=== PATIENT | female | born 1975 | race Caucasian/White ===

== ENCOUNTER 2016-10-08 20:25 | Emergency (ER) | payer BC ==
[2016-10-08 21:01] VITALS: BP 142/79; PULSE 88; TEMP 97.9
[2016-10-08 21:06] VITALS: BMI 30.9
[2016-10-08 21:44] LABS: AUTOMATED BASOPHIL 0.9 % (0-2); AUTOMATED EOSINOPHIL 1.3 % (0-5); AUTOMATED LYMPH 28.2 % (17-44); AUTOMATED MONOCYTE 5.4 % (3-10); AUTOMATED NEUTROPHIL 64.2 % (45-76)
[2016-10-08 21:51] LABS: AMORPHOUS OCC; LEUKOCYTES/URINE NEG (NEGATIVE); NITRITE/URINE NEG (NEGATIVE); URINE OCCULT BLOOD NEG (NEG/TRACE)
[2016-10-08 21:57] LABS: BLOOD UREA NITROGEN 10 MG/DL (7-17); CALCIUM 8.9 MG/DL (8.4-10.2); CALCULATED OSMOLALITY 277 MOs/Kg (270-290); CHLORIDE 105 mEq/L (98-107); GLUCOSE 89 MG/DL (70-99); SODIUM LEVEL 145 mEq/L (137-146); TOTAL PROTEIN 7.5 G/DL (6.3-8.2)
[2016-10-08] MEDS ORDERED: OXYCODONE HCL 5 MG TABLET PO ONE (22:06)
[2016-10-08] MEDS ORDERED: NS 1,000 ML IV ONE (22:06)
--- NOTE | 2016-10-08 22:26 | EDPRACDOC ---
- General Information Chief Complaint: Abdominal Pain Stated Complaint: ABDOMINAL PAIN Time Seen by Provider: 10/08/16 22:10 Information Source: Patient Mode Of Arrival: Car Home Medications: Home Medications Butalb/Acetaminophen/Caffeine [Fioricet 50-300-40 mg Capsule] 1 each PO TID PRN 02/27/14 Divalproex Sodium [Depakote] 500 mg PO BID 02/27/14 Omeprazole 40 mg PO DAILY 02/27/14 Sumatriptan Succinate [Imitrex] 100 mg PO DAILY PRN 02/27/14 Oxycodone Immediate Release [Oxycodone Immediate Release Tablet] 1 - 2 tabs PO Q6H PRN 03/02/14 Promethazine HCl [Phenergan] 1 tab PO Q4H PRN 03/02/14 Allergies/Adverse Reactions: Allergies Allergy/AdvReac Type Severity Reaction Status Date / Time No Known Allergies Allergy Verified 10/08/16 21:01 - History of Present Illness Onset: one months HPI: C/o constant RLQ ache with spikes of sharp pain that also radiate to right inner thigh and belly button and hip. Pain has been getting worse, and is worse with movement. Pt has not had menses for 2 months, hx of BTL, and inguinal hernia repair on right side 15yrs ago. Denies trauma, fever, vomiting, diarrhea , sob, cp, vaginal sx, changes in bladder or BM. Has tried ibuprofen without relief. Surgical hx = nash, BTL. Pain Location: Reports: RLQ Pain Context: Reports: Spontaneous Pain Severity: Moderate Pain Quality: Reports: Aching, Cramping, Sharp Pain Radiation: Reports: Periumbilical, Groin Last Menstrual Period: 2 months : No Control Method: Reports: BTL Adult Abdominal History: Reports: Abdominal Surgery (nash) Female Abdominal History: Reports: Abdominal Surgery (btl) Modifying Factors: improves with: Lying Still Female Associated Signs & Symptoms: Reports: Nausea Oral Intake: Normal Urinary Output: Normal ED Past Medical History - History Reviewed Yes Nurses notes reviewed and agree except as marked - Patient Medical History Neurological History: Reports: Migraine Respiratory History: Reports: Asthma GI/ History: Reports: Kidney Stones (PASSED) Psychological History: Reports: Bipolar Disorder Systemic History: Denies: Cancer Surgical History: Reports: Cholecystectomy, Hernia Surgery (RT GROIN) - Family Medical History Reports: Hypertension, Cancer (MOTHER, BREAST). Denies: Diabetes, Stroke, Cardiac Disorders - Social Medical History Smoking Status: Never smoker EDM Review of Systems - Review of Systems ROS Negative Except as Marked: Yes All systems reviewed and were negative except as marked Gastrointestinal: Nausea, Pain - Physical Exam Constitutional: No apparent distress, Alert Oriented to: Time, Person, Place Last recorded Vital Signs: Last Vital Signs Temp 97.9 F 10/08/16 21: Pulse 88 10/08/16 21: Resp 18 10/08/16 21:01 BP 142/79 10/08/16 21:01 Pulse Ox 96 10/08/16 21:01 Oxygen Pulse Oxygen Saturation 96 O2 Device Oxygen Flow Rate Fraction of Inspired Oxygen ( FIO2) - HEENT Head: Normal Eye Exam: negative: Conjunctival Injection, Scleral Icterus Oropharynx: negative: Drooling TMJ: Normal Nose: No Symptoms Reported Neck: Normal - Respiratory/Cardiovascular Respiratory: Normal - CTA Cardiovascular: Normal - GI Auscultation: Normal Palpation: Normal Tenderness: Moderate, RLQ, Rebound - Musculoskeletal Back: Normal Extremities: Normal - Integumentary Skin: Normal - Neurologic Mood Description: Normal Thought: Coherent - Results 10/08/16 21:30 10/08/16 21:30 WBC 13.3 xk/uL (3.8-10.8) H 10/08/16 21:30 RBC 4.59 xM/uL (4.20-5.40) 10/08/16 21:30 Hgb 13.6 g/dL (12.0-16.0) 10/08/16 21:30 Hct 39.4 % (36-47) 10/08/16 21:30 MCV 86 fL (81-99) 10/08/16 21:30 MCH 29.7 pg (27-32) 10/08/16 21:30 MCHC 34.5 g/dl (33-36) 10/08/16 21:30 RDW 13.4 % (11.5-14.5) 10/08/16 21:30 Plt Count 240 xk/uL (130-400) 10/08/16 21:30 MPV 8.0 fL (7.4-10.4) 10/08/16 21:30 Neut % (Auto) 64.2 % (45-76) 10/08/16 21:30 Lymph % (Auto) 28.2 % (17-44) 10/08/16 21:30 Glenn % (Auto) 5.4 % (3-10) 10/08/16 21:30 Eos % (Auto) 1.3 % (0-5) 10/08/16 21:30 Baso % (Auto) 0.9 % (0-2) 10/08/16 21:30 Absolute Neuts (auto) 8.51 xk/uL (1.7-8.2) H 10/08/16 21:30 Absolute Lymphs (auto) 3.72 xk/uL (0.65-4.75) 10/08/16 21:30 Sodium 145 mEq/L (137-146) 10/08/16 21:30 Potassium 3.3 mEq/L (3.5-5.1) L 10/08/16 21:30 Chloride 105 mEq/L (98-107) 10/08/16 21:30 Carbon Dioxide 29 mMOL/L (22-33) 10/08/16 21:30 Anion Gap 14 mEq/L (8-16) 10/08/16 21:30 BUN 10 MG/DL (7-17) 10/08/16 21:30 Creatinine 1.00 MG/DL (0.52-1.04) 10/08/16 21:30 Estimated GFR (MDRD) > 60 mL/min (>=60) 10/08/16 21:30 Glucose 89 MG/DL (70-99) 10/08/16 21:30 Calculated Osmolality 277 MOs/Kg (270-290) 10/08/16 21:30 Calcium 8.9 MG/DL (8.4-10.2) 10/08/16 21:30 Corrected Calcium 9.0 MG/DL (8.4-10.2) 10/08/16 21:30 Total Bilirubin 0.6 MG/DL (0.2-1.3) 10/08/16 21:30 AST 26 IU/L (14-36) 10/08/16 21:30 ALT 36 IU/L (9-52) 10/08/16 21:30 Alkaline Phosphatase 121 IU/L (38-126) 10/08/16 21:30 Total Protein 7.5 G/DL (6.3-8.2) 10/08/16 21:30 Albumin 3.9 G/DL (3.5-5.0) 10/08/16 21:30 Beta HCG, Quant < 2.4 mIU/mL (<5) 10/08/16 21:30 Urine Color Yellow 10/08/16 21:26 Urine Clarity Sl hzy 10/08/16 21:26 Urine pH 6.0 (5.0-8.0) 10/08/16 21:26 Ur Specific [place] 1.020 (1.003-1.035) 10/08/16 21:26 Urine Protein 1+ (NEG/TRACE) H 10/08/16 21:26 Urine Glucose (UA) Neg (NEGATIVE) 10/08/16 21:26 Urine Ketones Neg (NEGATIVE) 10/08/16 21:26 Urine Occult Blood Neg (NEG/TRACE) 10/08/16 21:26 Urine Nitrite Neg (NEGATIVE) 10/08/16 21:26 Urine Bilirubin Neg (NEGATIVE) 10/08/16 21:26 Urine Urobilinogen <2.0 MG/DL (0-1) 10/08/16 21:26 Ur Leukocyte Esterase Neg (NEGATIVE) 10/08/16 21:26 Ur Epithelial Cells 2+ 10/08/16 21:26 Amorphous Sediment Occ 10/08/16 21:26 Urine Mucus Mod (NEG/OCC) H 10/08/16 21:26 Urine Test Neg (NEGATIVE) 10/08/16 21:26 Lab Results 10/08/16 10/08/16 10/08/16 21:30 21:30 21:30 WBC 13.3 H RBC 4.59 Hgb 13.6 Hct 39.4 MCV 86 MCH 29.7 MCHC 34.5 RDW 13.4 Plt Count 240 MPV 8.0 Neut % (Auto) 64.2 Lymph % (Auto) 28.2 Glenn % (Auto) 5.4 Eos % (Auto) 1.3 Baso % (Auto) 0.9 Absolute Neuts (auto) 8.51 H Absolute Lymphs (auto) 3.72 Sodium 145 Potassium 3.3 L Chloride 105 Carbon Dioxide 29 Anion Gap 14 BUN 10 Creatinine 1.00 Estimated GFR (MDRD) > 60 Glucose 89 Calculated Osmolality 277 Calcium 8.9 Corrected Calcium 9.0 Total Bilirubin 0.6 AST 26 ALT 36 Alkaline Phosphatase 121 Total Protein 7.5 Albumin 3.9 Beta HCG, Quant < 2.4 Urine Color Urine Clarity Urine pH Ur Specific [place] Urine Protein Urine Glucose (UA) Urine Ketones Urine Occult Blood Urine Nitrite Urine Bilirubin Urine Urobilinogen Ur Leukocyte Esterase Ur Epithelial Cells Amorphous Sediment Urine Mucus Urine Test 10/08/16 10/08/16 21:26 21:26 WBC RBC Hgb Hct MCV MCH MCHC RDW Plt Count MPV Neut % (Auto) Lymph % (Auto) Glenn % (Auto) Eos % (Auto) Baso % (Auto) Absolute Neuts (auto) Absolute Lymphs (auto) Sodium Potassium Chloride Carbon Dioxide Anion Gap BUN Creatinine Estimated GFR (MDRD) Glucose Calculated Osmolality Calcium Corrected Calcium Total Bilirubin AST ALT Alkaline Phosphatase Total Protein Albumin Beta HCG, Quant Urine Color Yellow Urine Clarity Sl hzy Urine pH 6.0 Ur Specific [place] 1.020 Urine Protein 1+ H Urine Glucose (UA) Neg Urine Ketones Neg Urine Occult Blood Neg Urine Nitrite Neg Urine Bilirubin Neg Urine Urobilinogen <2.0 Ur Leukocyte Esterase Neg Ur Epithelial Cells 2+ Amorphous Sediment Occ Urine Mucus Mod H Urine Test Neg - Diagnostic Imaging Abdomen Image interpreted by: Radiologist 10/09/16 00:47 EXAM: CT ABDOMEN AND PELVIS WITH CONTRAST TECHNIQUE: Multidetector CT imaging of the abdomen and pelvis was performed using the standard protocol following bolus administration of intravenous contrast. CONTRAST: 100 cc Isovue 370 COMPARISON: 01/11/2013 FINDINGS: Lower chest: Linear subsegmental atelectasis in the right middle lobe and lingula. Hepatobiliary: Cholecystectomy. Pancreas: Unremarkable Spleen: Unremarkable Adrenals/Urinary Tract: Unremarkable Stomach/Bowel: Appendix not seen but no right lower quadrant inflammatory process is evident. The bowel appears unremarkable. Vascular/Lymphatic: Small retroperitoneal lymph nodes are present but are not pathologically enlarged Reproductive: Unremarkable Other: No supplemental non-categorized findings. Musculoskeletal: Mild levoconvex lumbar scoliosis. No overt impingement in the lumbar spine. Slight stranding along the right inguinal canal region, image 83 series 3. If the patient has had prior inguinal hernia repair then this would be a normal and expected finding. Otherwise a could represent a small focus of inflammation or a slightly indistinct lymph node. There is some low-level subcutaneous stranding overlying the right groin as well. No discrete hernia seen. IMPRESSION: 1. The appendix is not discretely seen but there is no inflammatory process in the right lower quadrant to favor acute appendicitis. 2. In the vicinity of the right inguinal ring there is a small focus of asymmetric density. If the patient has had prior inguinal hernia repair then this would be in normal and expected finding. If not, it could represent a small focus of inflammation or an adjacent external iliac lymph node. There is some subtle stranding in the overlying subcutaneous tissues of the right groin. No inguinal hernia is currently seen. 3. Mild levoconvex lumbar scoliosis. Electronically Signed By: Luis Chong M.D. On: 10/09/2016 00:26 Decision Time to Discharge: 00:47 - Departure Disposition: Home Condition: Stable Final Diagnosis: Right sided abdominal pain Instructions: Acute Abdominal Pain (ED), Non-pharmacological Pain Management Therapies for Adults (GEN), Abdominal Pain (ED) Education/Counseling Given To: Patient Education/Counseling Given Regarding: Diagnosis, Treatment, Prognosis, Follow Up Referrals: Karson Hancock MD [Staff Physician] - One Week Additional Instructions: Follow up with primary care for abdominal pain. Return to ED for any new or worsening symptoms.
[2016-10-08] MEDS ORDERED: Pharmacy Review for Metformin - IV Contrast Given SCH (23:45)
--- NOTE | 2016-10-09 00:28 | DIRPT ---
CLINICAL DATA: Abdominal pain. Rebound tenderness in the right lower quadrant. Nausea. EXAM: CT ABDOMEN AND PELVIS WITH CONTRAST TECHNIQUE: Multidetector CT imaging of the abdomen and pelvis was performed using the standard protocol following bolus administration of intravenous contrast. CONTRAST: 100 cc Isovue 370 COMPARISON: 01/11/2013 FINDINGS: Lower chest: Linear subsegmental atelectasis in the right middle lobe and lingula. Hepatobiliary: Cholecystectomy. Pancreas: Unremarkable Spleen: Unremarkable Adrenals/Urinary Tract: Unremarkable Stomach/Bowel: Appendix not seen but no right lower quadrant inflammatory process is evident. The bowel appears unremarkable. Vascular/Lymphatic: Small retroperitoneal lymph nodes are present but are not pathologically enlarged Reproductive: Unremarkable Other: No supplemental non-categorized findings. Musculoskeletal: Mild levoconvex lumbar scoliosis. No overt impingement in the lumbar spine. Slight stranding along the right inguinal canal region, image 83 series 3. If the patient has had prior inguinal hernia repair then this would be a normal and expected finding. Otherwise a could represent a small focus of inflammation or a slightly indistinct lymph node. There is some low-level subcutaneous stranding overlying the right groin as well. No discrete hernia seen. IMPRESSION: 1. The appendix is not discretely seen but there is no inflammatory process in the right lower quadrant to favor acute appendicitis. 2. In the vicinity of the right inguinal ring there is a small focus of asymmetric density. If the patient has had prior inguinal hernia repair then this would be in normal and expected finding. If not, it could represent a small focus of inflammation or an adjacent external iliac lymph node. There is some subtle stranding in the overlying subcutaneous tissues of the right groin. No inguinal hernia is currently seen. 3. Mild levoconvex lumbar scoliosis. Electronically Signed By: Luis Chong M.D. On: 10/09/2016 00:26
== END 2016-10-09 00:58 | disposition home or self-care (01) ==
LOC: ED 20:25
DX: R10.9 Unspecified abdominal pain (principal)
CPT/HCPCS: 36415; 74177; 80053; 81001; 81025; 84702; 85025; 99283; A9698